=== PATIENT | female | born 1970 | race Caucasian/White ===

== ENCOUNTER → 2016-09-04 | Outpatient (CLI) | payer BC ==
[2016-09-04 13:02] LABS: HEMOGLOBIN 10.6 gm/dl (12.3-15.3); RED BLOOD COUNT 3.79 M/UL (4.00-5.10); WHITE BLOOD COUNT 5.4 K/UL (4.5-11.0)
[2016-09-04 13:51] LABS: BUN/CREATININE RATIO 14 (0-10)
== END ==
LOC: LAB 11:01
PROVIDERS: Nurse Practitioner Family
DX: D50.9 Iron deficiency anemia, unspecified (principal); R25.2 Cramp and spasm
CPT/HCPCS: 36415; 80053; 80061; 82043; 82570; 82607; 82728; 83036; 83540; 83550; 83735; 84439; 84443; 84630; 85025

== ENCOUNTER → 2020-07-30 | Outpatient (CLI) | payer BC ==
[2020-07-31 13:10] LABS: ANTISTREPTOLYSIN O AB 70.6 IU/mL (0.0-200.0); RHEUMATOID ARTHRITIS FACTOR <10.0 IU/mL (0.0-13.9)
== END ==
LOC: LAB 07:42
PROVIDERS: Nurse Practitioner Family
DX: M25.50 Pain in unspecified joint (principal)
CPT/HCPCS: 36415; 84550; 85652; 86038; 86060; 86140; 86141; 86431

== ENCOUNTER → 2020-08-29 | Outpatient (CLI) | payer BC ==
[2020-08-29 08:33] LABS: HEMOGLOBIN 12.1 gm/dl (12.3-15.3); RED BLOOD COUNT 3.92 M/UL (4.00-5.10); WHITE BLOOD COUNT 4.6 K/UL (4.5-11.0)
[2020-08-29 08:44] LABS: BUN/CREATININE RATIO 14 (0-10)
== END ==
LOC: LAB 07:42
PROVIDERS: Nurse Practitioner Family
DX: E78.5 Hyperlipidemia, unspecified (principal); E55.9 Vitamin D deficiency, unspecified; M51.36 Other intervertebral disc degeneration, lumbar region; R05 Cough; M25.50 Pain in unspecified joint; Z00.00 Encounter for general adult medical examination without abnormal findings; I10 Essential (primary) hypertension; E03.9 Hypothyroidism, unspecified; R53.83 Other fatigue; E53.8 Deficiency of other specified B group vitamins
CPT/HCPCS: 36415; 80053; 80061; 82607; 84439; 84443; 85025

== ENCOUNTER → 2020-12-18 | Outpatient (CLI) | payer BC ==
[2020-12-18 13:35] LABS: HEMOGLOBIN 12.8 gm/dl (12.3-15.3); RED BLOOD COUNT 3.99 M/UL (4.00-5.10); WHITE BLOOD COUNT 5.2 K/UL (4.5-11.0)
== END ==
LOC: LAB 13:10
PROVIDERS: Internal Medicine Hematology & Oncology
DX: E03.9 Hypothyroidism, unspecified (principal); D70.9 Neutropenia, unspecified; D64.9 Anemia, unspecified; E83.2 Disorders of zinc metabolism
CPT/HCPCS: 36415; 82728; 83540; 83550; 84146; 84439; 84443; 84630; 85025; 86140

== ENCOUNTER → 2021-02-20 | Outpatient (CLI) | payer BC ==
[2021-02-20 12:19] LABS: HEMOGLOBIN 12.4 gm/dl (12.3-15.3); RED BLOOD COUNT 3.84 M/UL (4.00-5.10); WHITE BLOOD COUNT 5.8 K/UL (4.5-11.0)
== END ==
LOC: LAB 10:48
PROVIDERS: Internal Medicine Hematology & Oncology
DX: D64.9 Anemia, unspecified (principal); D70.9 Neutropenia, unspecified; E83.2 Disorders of zinc metabolism
CPT/HCPCS: 82728; 83540; 84630; 85025; 86140

== ENCOUNTER → 2021-06-23 | Outpatient (CLI) | payer BC | LOC: EXRD 14:02 | DX: R07.89 Other chest pain (principal) | CPT/HCPCS: 71046 ==

== ENCOUNTER 2021-06-26 11:52 | Emergency (ER) | payer BC ==
[2021-06-26 12:52] LABS: HEMOGLOBIN 12.5 gm/dl (12.3-15.3); RED BLOOD COUNT 4.05 M/UL (4.00-5.10); WHITE BLOOD COUNT 6.7 K/UL (4.5-11.0)
[2021-06-26 13:09] LABS: BUN/CREATININE RATIO 14 (0-10)
== END 2021-06-26 15:55 | disposition home or self-care (01) ==
LOC: ER1 11:52
PROVIDERS: Family Medicine
DX: R07.9 Chest pain, unspecified (principal); K21.9 Gastro-esophageal reflux disease without esophagitis; Z88.6 Allergy status to analgesic agent
CPT/HCPCS: 71045; 80053; 82550; 82553; 83874; 84484; 85025; 93005; 99285

== ENCOUNTER → 2021-07-10 | Outpatient (CLI) | payer BC ==
[2021-07-10 07:37] LABS: HEMOGLOBIN 11.4 gm/dl (12.3-15.3); RED BLOOD COUNT 3.65 M/UL (4.00-5.10)
[2021-07-11 06:11] LABS: A/G RATIO 1.9 (1.2-2.2); ALKALINE PHOSPHATASE, S 54 IU/L (44-121); ALT (SGPT) 19 IU/L (0-32); AST (SGOT) 18 IU/L (0-40); BILIRUBIN, TOTAL 0.3 mg/dL (0.0-1.2); BUN 12 mg/dL (6-24); BUN/CREATININE RATIO 14 (9-23); CALCIUM, SERUM 8.9 mg/dL (8.7-10.2); CARBON DIOXIDE, TOTAL 23 mmol/L (20-29); CHLORIDE, SERUM 105 mmol/L (96-106); CHOLESTEROL, TOTAL 232 mg/dL (100-199); CREATININE, SERUM 0.84 mg/dL (0.57-1.00); EGFR IF AFRICN AM 94 (>59); EGFR IF NONAFRICN AM 82 (>59); GLOBULIN, TOTAL 2.1 g/dL (1.5-4.5); GLUCOSE, SERUM 84 mg/dL (65-99); HDL CHOLESTEROL 67 mg/dL (>39); LDL CHOLESTEROL CALC 146 mg/dL (0-99); LDL/HDL RATIO 2.2 ratio (0.0-3.2); POTASSIUM, SERUM 4.3 mmol/L (3.5-5.2); PROTEIN, TOTAL, SERUM 6.1 g/dL (6.0-8.5); SODIUM, SERUM 141 mmol/L (134-144); T. CHOL/HDL RATIO 3.5 ratio (0.0-4.4); TRIGLYCERIDES 106 mg/dL (0-149); VITAMIN D, 25-HYDROXY 59.5 ng/mL (30.0-100.0)
== END ==
LOC: LAB 05:39
PROVIDERS: Nurse Practitioner Family
DX: Z00.00 Encounter for general adult medical examination without abnormal findings (principal); M25.50 Pain in unspecified joint; M51.36 Other intervertebral disc degeneration, lumbar region; R10.13 Epigastric pain; E78.5 Hyperlipidemia, unspecified; I10 Essential (primary) hypertension; E03.9 Hypothyroidism, unspecified; N92.6 Irregular menstruation, unspecified; R53.83 Other fatigue; E53.8 Deficiency of other specified B group vitamins; E55.9 Vitamin D deficiency, unspecified; M54.12 Radiculopathy, cervical region
CPT/HCPCS: 36415; 80053; 80061; 81001; 82607; 84439; 84443; 85025

== ENCOUNTER → 2021-07-17 | Outpatient (CLI) | payer BC ==
[2021-07-17 08:44] LABS: HEMOGLOBIN 12.3 gm/dl (12.3-15.3); RED BLOOD COUNT 3.95 M/UL (4.00-5.10); WHITE BLOOD COUNT 4.2 K/UL (4.5-11.0)
== END ==
LOC: LAB 06:32
PROVIDERS: Nurse Practitioner Family
DX: D50.9 Iron deficiency anemia, unspecified (principal); R53.83 Other fatigue
CPT/HCPCS: 36415; 82728; 83540; 83550; 85025; 86803

== ENCOUNTER → 2021-09-09 | Outpatient (CLI) | payer BC | LOC: RAD 09:04 → EXRD 09:04 | DX: M47.26 Other spondylosis with radiculopathy, lumbar region (principal); M51.16 Intervertebral disc disorders with radiculopathy, lumbar region; M25.561 Pain in right knee; M25.551 Pain in right hip; M25.552 Pain in left hip; M25.461 Effusion, right knee; M16.12 Unilateral primary osteoarthritis, left hip | CPT/HCPCS: 72100; 73522; 73560 ==

== ENCOUNTER → 2021-09-17 | Outpatient (CLI) | payer BC | LOC: HEART 5 13:50 | DX: R55 Syncope and collapse (principal); R00.2 Palpitations ==

== ENCOUNTER → 2021-09-18 | Outpatient (CLI) | payer BC ==
[2021-09-18 10:22] LABS: BUN/CREATININE RATIO 23 (0-10)
[2021-09-19 12:11] LABS: ANTISTREPTOLYSIN O AB 55.4 IU/mL (0.0-200.0); RHEUMATOID ARTHRITIS FACTOR <10.0 IU/mL (<14.0)
== END ==
LOC: LAB 09:19
PROVIDERS: Nurse Practitioner Family
DX: M25.50 Pain in unspecified joint (principal)
CPT/HCPCS: 36415; 80053; 84550; 85652; 86038; 86060; 86141; 86431

== ENCOUNTER → 2021-09-29 | Outpatient (CLI) | payer BC ==
[2021-09-29 12:03] LABS: BUN/CREATININE RATIO 18 (0-10)
== END ==
LOC: LAB 10:45
PROVIDERS: Nurse Practitioner Family
DX: R55 Syncope and collapse (principal); R07.9 Chest pain, unspecified; M25.50 Pain in unspecified joint; R68.84 Jaw pain
CPT/HCPCS: 36415; 80053; 82550; 82552; 83615; 83625; 84484; 85652

== ENCOUNTER → 2021-10-21 | Outpatient (CLI) | payer BC | LOC: KOH-I 13:00 | DX: M47.26 Other spondylosis with radiculopathy, lumbar region (principal); R26.2 Difficulty in walking, not elsewhere classified; R26.89 Other abnormalities of gait and mobility | CPT/HCPCS: 72148 ==